=== PATIENT | male | born 1965 | race Native Hawaiian/Other Pacific Islander ===

== ENCOUNTER 2016-06-28 10:35 | Emergency (ER) | payer OTHER ==
[~2016-06-28] VITALS: Ht 180.3 cm; Wt 74.8 kg
[2016-06-28 11:53] LABS: PLATELET COUNT 275 K/uL (142-355)
[2016-06-28 12:02] LABS: POTASSIUM 3.9 mmol/L (3.6-5.2); SODIUM 136 mmol/L (136-145)
== END 2016-06-28 13:15 | disposition home or self-care (01) ==
LOC: ED 10:35
DX: L03.115 Cellulitis of right lower limb (principal); W22.8XXA Striking against or struck by other objects, initial encounter
CPT/HCPCS: 80053; 85027; 90715; 99283; J0696; J1885

== ENCOUNTER 2017-04-30 12:57 | Emergency (ER) | payer OTHER ==
[~2017-04-30] VITALS: Ht 180.3 cm; Wt 68.0 kg
[2017-04-30 13:16] VITALS: TEMP 98.6
[2017-04-30 14:33] VITALS: BP 132/87
== END 2017-04-30 14:35 | disposition home or self-care (01) ==
LOC: ED 12:57
DX: S60.551A Superficial foreign body of right hand, initial encounter (principal); W45.8XXA Other foreign body or object entering through skin, initial encounter
CPT/HCPCS: 96374; 99284; J2270

== ENCOUNTER 2018-01-24 13:04 | Emergency (ER) | payer OTHER ==
[~2018-01-24] VITALS: Ht 177.8 cm; Wt 70.3 kg
[2018-01-24 15:20] VITALS: BP 122/81; TEMP 98
== END 2018-01-24 15:20 | disposition home or self-care (01) ==
LOC: ED 13:04
PROC: 0HQGXZZ Repair Left Hand Skin, External Approach (ICD-10-PCS; principal; 2018-01-24)
DX: S61.012A Laceration without foreign body of left thumb without damage to nail, initial encounter (principal); W26.8XXA Contact with other sharp object(s), not elsewhere classified, initial encounter
CPT/HCPCS: 99283; J7040

== ENCOUNTER 2022-05-22 01:02 | Emergency (ER) | payer OTHER ==
[~2022-05-22] VITALS: Ht 177.8 cm; Wt 49.9 kg
[2022-05-22 02:25] LABS: PLATELET COUNT 325 K/uL (142-355)
[2022-05-22 02:48] LABS: POTASSIUM 3.8 mmol/L (3.6-5.2)
[2022-05-22 06:15] VITALS: BP 144/89; TEMP 97.6
== END 2022-05-22 06:15 | disposition home or self-care (01) ==
LOC: ED 01:02
PROVIDERS: Emergency Medicine
DX: F19.10 Other psychoactive substance abuse, uncomplicated (principal); E86.0 Dehydration
CPT/HCPCS: 36415; 80053; 80307; 81002; 84484; 85027; 85610; 85730; 93005; 96360; 99284